=== PATIENT | female | born 1945 | race Caucasian/White ===

== ENCOUNTER → 2019-12-09 | Outpatient (CLI) | payer OTHER, BC ==
[~2019-12-09] VITALS: Ht 157.5 cm; Wt 120.0 kg
[~2019-12-09] MED LIST: ALLOPURINOL 10100 M3 PO; CELEBREX 200 M200 MG PO; CITALOPRAM HBR40 MG PO; FLUOCINONI0.05 %/31 TOP; NIFEDIPINE ER60 M1 PO; TRAMADOL 50 MG50 MG PO; TRIAMTERENE-HC1 EAC2 PO; VITAMIN D31 ML IM
[2019-12-09 14:28] VITALS: BP 184/103
--- NOTE | 2019-12-09 14:41 | NUR ---
Pain Clinic Assessment: 1. History of Osteoarthritis: Right Upper Extremity Left Upper Extremity History of Rheumatoid Arthritis: PSORIATIC ARTHRITIS 2. Height: 5 ft. 2 in. 157.5 cm. Weight: 264.6 lb. oz. 120.022 kg. Patient's BMI: 48.4 3. Vital Signs: BP: 184/103 Pulse: 86 Resp: 20 Temp: 02 Sat: 96 ECG Mon: 4. Pain Intensity: 7 5. Fall Risk: Dizziness: N Needs help standing or walking: N Fallen in the last 3 months: N Fall risk comments: 6. Patient on Blood Thinner: None 7. History of Hypertension: Y 8. Opioid Therapy greater than 6 weeks: Y Opiate Contract Signed: 9. Risk Assessment Tool Provided: 10. Functional Assessment Tool: 50/ 11. Recreational Drug Use: Never Drug Type: Tobacco Use: Never Smoker Tobacco Type: Amount or Packs/day: How Many Years: Alcohol Use: No Frequency: Quant:
--- NOTE | 2019-12-22 09:16 | HPC ---
[facility] [place] [address] PAIN MANAGEMENT CONSULTATION Name: BRE ORELLANA Room #: REG [facility]..#: [id number] Admission: 12/09/19 Attend Phys: Cristhian Collins DO Discharge: Date of : 45 Report #: [id number] THIS REPORT FOR: cc: Juan Pablo Simpson MD, Mark S. MD Johnson, James E. DO ~ DATE OF SERVICE: 12/09/2019 REFERRING PHYSICIAN: Juan Pablo Simpson MD CHIEF COMPLAINT: Low back pain, bilateral posterolateral thigh pain. HISTORY OF PRESENT ILLNESS: As you know, the patient is a 74-year-old female who reports a longstanding history of low back pain and buttock and posterolateral thigh pain. She states pain began in 2014. She denies injury or trauma that may have led to symptom development. She states she has been participating in daily activities, even though her pain is intense. When she began to become debilitated by her symptoms, she discussed her case with her Internal Medicine physician, Dr. Juan Pablo Simpson, who trialled conservative treatment options. Unfortunately, her symptoms did not improve. She was subsequently sent for MRI on 09/05/2018, which showed changes consistent with spinal stenosis that is marked at the L4-L5 level and moderate at the L1-L2, L2-L3 and L3-L4 levels. The patient continued to try conservative options without improvement. She was subsequently then referred to our clinic to discuss the possibility of addressing her symptoms with epidural injections. The patient reports today pain is continuous. She describes the pain as shooting, crushing. When describing symptoms, she places pain score today at 7/10, daily average at 7/10, worst pain has been 8/10. The patient states standing, bending, walking exacerbate symptoms; sitting tends to improve pain. She indicates that no conservative treatment option to date has been beneficial. She has not sought chiropractic manipulation or any other type of adjunctive treatment. She has been referred to our clinic to discuss interventional treatments to address suspected lumbar radiculopathy. PAST MEDICAL HISTORY: 1. Hypertension. 2. Degenerative joint disease. 3. Osteoarthritis. 4. Class 3 morbid obesity. 5. Depression. 6. Psoriatic arthritis. PAST SURGICAL HISTORY: Appendectomy. [facility] [address] [place] [address] PAIN MANAGEMENT CONSULTATION Name: BRE ORELLANA Room #: REG [facility]#: [id number] Admission: 12/09/19 Attend Phys: Cristhian Collins DO Discharge: Date of : 45 Report #: [id number] SOCIAL HISTORY: The patient reports she is a nonsmoker. Denies IV or illicit drug use. Denies any chronic alcohol use. 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 She has not been in the workforce. She is not receiving workmen's compensation nor is she trying to obtain disability benefits. She is not in litigation in regards to pain, unaccompanied at today's visit. REVIEW OF SYSTEMS: Positive for weight gain, wearing corrective eyewear, cataracts, shortness of breath with walking or lying flat, low back pain, psoriatic arthritis. All other review of systems negative per 12-point review of systems and those listed in history of present illness. Pain impact score 50/70 indicating severe interference of daily activities secondary to pain. ALLERGIES: No reported drug allergies. CURRENT MEDICATIONS: Nifedipine 60 mg twice a day, celecoxib 200 mg twice a day, triamterene/hydrochlorothiazide 37.5/25 once a day, tramadol 50 mg 2 tabs q.8 hours, vitamin D2 of 50,000 units once a week, allopurinol 100 mg once a day, atorvastatin 40 mg per day, citalopram 40 mg per day. ? IMAGING: MRI lumbar spine obtained 09/05/2018 shows multilevel degenerative changes throughout the lumbar spine. There is severe to marked stenosis of the central canal at L4-L5; moderate central canal stenosis at L1-L2, L2-L3 and L3-L4. PQRS: The patient has known osteoarthritic changes of the bilateral shoulders, bilateral hands, lumbar spine and hips. She does have a history of psoriatic arthritis for which she is receiving treatment. She is placing pain intensity as 7/10. She is not a fall risk, has not had a fall in last 3 months. She is not on blood thinners, but is treated for hypertension. She is on chronic opioids and has a low opioid addiction potential based on our assessment tool. Pain impact is 50/70, severe interference of daily activities secondary to pain. PHYSICAL EXAMINATION: VITAL SIGNS: Blood pressure 184/103, pulse is 86, respiratory rate 20 and unlabored. The patient is 96% on room air. Height 5 feet 2 inches tall, weight 264.6 pounds, BMI calculated 48.2. GENERAL: Well-developed, well-nourished, well-hydrated, class 3 severely morbidly obese 74-year-old female, appears her stated age. She is in no acute distress. She is placing pain today 7/10. HEENT: Normocephalic, atraumatic. Pupils round and reactive. Extraocular muscles are intact. NEUROLOGIC: Speech is fluent. The patient deemed a fair historian. LUNGS: The patient is able to complete sentences without difficulty. There is no accessory use of musculature. There is no cough or wheezing audible. [address] [address] PAIN MANAGEMENT CONSULTATION Name: BRE ORELLANA Room #: REG [facility]#: [id number] Admission: 12/09/19 Attend Phys: Cristhian Collins DO Discharge: Date of : 45 Report #: [id number] CARDIOVASCULAR: Regular. No appreciable gallop. ABDOMEN: Soft. Severely obese. Normoactive sounds. EXTREMITIES: Show no clubbing, 1+ nonpitting lower extremity edema noted. No cyanosis. MUSCULOSKELETAL: Lower extremity strength is symmetrical, but deconditioned. She is intact to light touch from L1 through S2 dermatomes. Seated straight leg raising negative. Supine straight leg raising negative. Luis's test is negative. Modified Gaenslen's positive for axial low back pain. Ankle clonus negative. Babinski is negative. Gait appears slightly antalgic. She does have a forward flexed position in standing with loss of lordotic curvature. Balance is fair as body habitus makes it difficult for her to balance well. ASSESSMENT: 1. Chronic low back pain. 2. Marked central canal stenosis at L4-L5. 3. Moderate central canal stenosis at L2-L3, L3-L4. 4. Multilevel facet arthropathy. 5. Degeneration of lumbar spine. 6. Class 3 morbid obesity. PLAN: 1. Based on today's physical exam and history the patient has provided, the description the patient uses in regards to pain as well as the longevity of symptoms and distribution of pain, likely source of her symptoms is the marked spinal stenosis noted at the L4-L5 level from imaging taken 1 year ago. There has likely been a progression of the stenosis, now may be more close to juan pablo just too critical. We discussed this with the patient today. The distribution of symptoms would correlate with central canal stenosis. I do feel ultimately treatment will have to be more aggressive than epidural injections, though at this point, her symptoms are rated only at 7/10 and more conservative treatment options prior to epidural injections have been unsuccessful. The patient was sent to our clinic to trial an epidural injection to determine if her symptoms may see improvement, though ultimately surgical decompression will be necessary, but given the patient's body habitus; she is not an optimal candidate for that type of procedure. We discussed all the treatment options available with the patient today; the following was discussed with the patient: We discussed physical therapy, stretching exercises, core strengthening and a concerted effort at weight loss. We discussed medication management with suggestions of treatment to address neuropathic symptoms and underlying nociceptive pain. We discussed epidural injections for which the patient was referred to our clinic. We also discussed surgical options which will likely be necessary. After reviewing the risks and benefits of all proposed treatment options, the patient chose to move forward with a lumbar epidural injection under fluoroscopic guidance. [address] [address] PAIN MANAGEMENT CONSULTATION Name: REYNABRE GARCIA Room #: REG [facility]#: [id number] Admission: 12/09/19 Attend Phys: Cristhian Collins DO Discharge: Date of : 45 Report #: [id number] The patient was advised risks and benefits of a lumbar epidural injection. These risks include but are not necessarily limited to bleeding, bruising, infection, worsening pain, no relief of pain, also risk of temporary or permanent muscle weakness, temporary or permanent nerve damage, possible paralysis and . The patient states understood and wished to proceed. 2. No medication changes made at today's visit. We recommend the patient to continue current medical therapy as prior prescribed. 3. We will see the patient back in followup visit in approximately one month. At that time, review the efficacy of today's epidural injection to determine if the next in the series of epidural injections would be recommended. 4. We wish to thank Dr. Juan Pablo Simpson for the referral of this patient to our clinic. We will keep you apprised of response to treatment to address central canal stenosis centered at the L4-L5 level. Again, we wish to thank you for the opportunity to see the patient in consultation. <ELECTRONICALLY SIGNED> By: Cristhian Collins DO 12/22/19 0916 [id number] Cristhian Collins DO /nt
--- NOTE | 2019-12-22 09:16 | P ---
[facility] [place] [address] PROCEDURE REPORT Name: BRE ORELLANA [id number] Admission: 12/09/19 Attend Phys: Cristhian Collins DO Discharge: Date of : 45 Report #: [id number] THIS REPORT FOR: cc: Jitendra Simpson MD, Mark S. MD Johnson, James E. DO ~ DATE OF SERVICE: 12/09/2019 DESCRIPTION OF PROCEDURE: L5-S1 intralaminar epidural steroid injection under fluoroscopic guidance. This is the first procedure of the first series that the patient is undergoing. After obtaining written consent, the patient was taken back to the fluoroscopy suite, placed in a prone position with pillow under the abdomen to decrease lumbar lordosis. The skin overlying the lumbosacral area was then prepped and draped in aseptic fashion. The L5-S1 vertebral interspace was then identified by AP fluoroscopy. The skin and subcutaneous tissue overlying the target site of injection was anesthetized with 3 mL 1% lidocaine. A 20-gauge 4-1/2 Tuohy needle was then advanced under fluoroscopic guidance towards the epidural space using a parasagittal approach. The epidural space was identified using loss of resistance to air technique. After negative aspiration for heme or cerebrospinal fluid, a total of 1 mL of Omnipaque was injected. A lumbar epidurogram was confirmed using both AP and lateral fluoroscopy. After negative aspiration for heme or cerebrospinal fluid, 5 mL of a solution containing 2 mL of 40 mg per mL 80 mg total triamcinolone along with 3 mL of lidocaine 1% was injected in increments. Contrast spread was noted in posterior epidural space. The needle was then retracted approximately half way and needle tract flushed with 1 mL of lidocaine. Needle was then removed. There were no apparent sensory or motor deficits in the lower extremity following the procedure. A sterile bandage was placed over the injection site. The heart rate, pulse, oximetry and blood pressure were continuously monitored after the procedure. There were no apparent complications. The patient tolerated the procedure well and was carefully escorted to the recovery room in stable condition. There were no apparent complications. After meeting discharge criteria, the patient was then discharged home. <ELECTRONICALLY SIGNED> By: Cristhian Collins DO 12/22/19 0916 [id number] Cristhian Collins DO /nt
== END | disposition home or self-care (01) ==
LOC: PAIN 06:49
PROVIDERS: ATTEND Anesthesiology Pain Medicine
DX: M54.16 Radiculopathy, lumbar region (principal); G89.29 Other chronic pain; I10 Essential (primary) hypertension; M19.90 Unspecified osteoarthritis, unspecified site; H40.9 Unspecified glaucoma; Z98.890 Other specified postprocedural states; Z79.899 Other long term (current) drug therapy; Z90.49 Acquired absence of other specified parts of digestive tract